=== PATIENT | male | born 1950 | race Caucasian/White ===

== ENCOUNTER 2019-09-01 00:53 | Day surgery (SDC) | payer MEDICARE, SELFPAY ==
[2019-08-27 15:20] VITALS: BMI 40.9
[2019-09-01 07:00] VITALS: BP 140/85; PULSE 96; RESP 16; TEMP 36.4; O2SAT 97
--- NOTE | 2019-09-01 07:01 | P.HP_ITS ---
History of Present Illness History of Present Illness Consent: Risks, benefits, and alternatives have been discussed and questions answered. Patient agrees to proceed with procedure. Chief complaint: Pers hx colon polyps Narrative: Mitul Smith is a 69 year old male with history of colon polyps here for screening [facility] Family History Family History Father Family history of throat cancer Mother Family history of heart disease in male family member before age 55 Other Family history of malignant neoplasm Social History Social History Smoking status: Smoker, status unknown Alcohol intake: current Meds Home Medications and Allergies Home Medications Medication Instructions Recorded Confirmed Type losartan 100 mg tablet 100 mg PO DAILY #90 tablet 07/09/19 08/27/19 Rx atorvastatin 20 mg tablet 20 mg PO DAILY #90 tablet 07/20/19 08/27/19 Rx ibuprofen 800 mg PO TID PRN 08/27/19 08/27/19 History Allergies Allergy/AdvReac Type Severity Reaction Status Date / Time No Known Allergies Allergy Verified 09/01/19 06:58 Exam Resp: Auscultation: clear to auscultation bilaterally Cardio: Rate: regular rate Rhythm: regular rhythm GI: GI Palp: Yes Soft to palpation and No Tenderness to palpation present (GI) Assessment and Plan Assessment and plan (1) Personal history of colonic polyps: Code(s): Z86.010 - Personal history of colonic polyps Status: Acute Assessment and Plan: Colonoscopy with possible biopsy or polypectomy or cautery or injection of substances.
[2019-09-01] MEDS: LACTATED RINGERS 1,000 ML 150 ML IV CONT (07:12)
--- NOTE | 2019-09-01 07:22 | WPDANESEPPF ---
Anes - Initial Pre Proc Eval Procedure: Operation Date: 09/01/19 08:00 Proposed Procedures p Screening Colonoscopy - Chandana Brown MD Date/Time: 09/01/19 07:22 Surgeon: Chandana Brown MD Pre Op Diagnosis: Pers hx colon polyps Patient Data Age: 69 Gender: M Height: 5 ft 6 in Weight: 113.8 kg Last Vital Signs Temp 97.5 F L 09/01/19 07:00 Pulse 96 09/01/19 07:00 Resp 16 09/01/19 07:00 BP 140/85 09/01/19 07:00 Pulse Ox 97 09/01/19 07:00 Allergies Allergy/AdvReac Type Severity Reaction Status Date / Time No Known Allergies Allergy Verified 09/01/19 06:58 Home Medications Medication Instructions Recorded Confirmed Type losartan 100 mg tablet 100 mg PO DAILY #90 tablet 07/09/19 08/27/19 Rx atorvastatin 20 mg tablet 20 mg PO DAILY #90 tablet 07/20/19 08/27/19 Rx ibuprofen 800 mg PO TID PRN 08/27/19 08/27/19 History Patient hx anesthesia problems: none Family hx anesthesia problems: none [facility] Past Medical History Medical History (Updated 09/01/19 @ 07:17 by Biju Hernandez MD) Hyperlipidemia Morbid obesity Family History Family History Father Family history of throat cancer Mother Family history of heart disease in male family member before age 55 Other Family history of malignant neoplasm Social History Social History Smoking status: Smoker, status unknown Alcohol intake: current Anes - Eval Final PreProcedure Day of Procedure 09/01/19 07:22 Patient weight: morbidly obese Heart: regular rate and rhythm Lungs: clear to auscultation Airway: Mallampati scale class II Neurological: alert and oriented Last oral intake: >/= 8 hours ASA classification: III Emergent: no Anesthetic plan: proceed Anesthesia type and monitoring: general GIVS and standard monitoring Informed Consent: The patient's anesthetic plan and its attendant risks and benefits were discussed with the patient/family/POA. Questions were solicited and answers provided to the satisfaction of the patient/family/POA.
[2019-09-01] MEDS: SIMETHICONE ORAL SUSPENSION 20 MG/0.3 ML 30 ML BOTTLE 0.6 ML IRRIGATION (07:59)
[2019-09-01 08:08] VITALS: BP 105/67; PULSE 89; RESP 20; O2SAT 95
[2019-09-01 08:18] VITALS: BP 117/68; PULSE 92; RESP 21; O2SAT 94
[2019-09-01 08:28] VITALS: BP 125/78; PULSE 88; RESP 19; O2SAT 97
[2019-09-01 08:38] VITALS: BP 126/74; PULSE 86; RESP 20; O2SAT 96
== END 2019-09-01 08:42 | disposition home or self-care (01) ==
PROVIDERS: PCP Internal Medicine; Visit Provider Internal Medicine Gastroenterology
PROC: 0DJD8ZZ Inspection of Lower Intestinal Tract, Via Natural or Artificial Opening Endoscopic (ICD-10-PCS; CPT 45378; principal; 2019-09-01 08:00)
DX: Z12.11 Encounter for screening for malignant neoplasm of colon (principal); D12.4 Benign neoplasm of descending colon; K62.1 Rectal polyp; K62.4 Stenosis of anus and rectum; E78.5 Hyperlipidemia, unspecified; E66.01 Morbid (severe) obesity due to excess calories; Z68.41 Body mass index [BMI] 40.0-44.9, adult
CPT/HCPCS: 45385; 45380; 88305; J2704; J7120

== ENCOUNTER 2020-05-31 06:41 | Outpatient (CLI) | payer MEDICARE, SELFPAY ==
--- NOTE | ~2020-05-31 | MR_ITS ---
EXAMINATION: MR thoracic spine wo con EXAM DATE: 05/31/2020 08:12 INDICATION: Back Pain. Lumbar Radiculopathy, thoracic Back Pain . TECHNIQUE: Multi-sequential, multiplanar MR images of the thoracic spine were obtained without contra st. Sagittal T1, T2, T2 fat saturation, axial T2 weighted images reviewed. Comparison is made to jerry or examination from 05/18/2018. FINDINGS: Several vertebral body hemangiomata unchanged. There is moderate thoracic disc disease from T6 through T10, mild to moderate at the lower lumbar levels. There is mild thoracic dextroscoliosis. The vertebral bodies are aligned in the AP dimension. Minimal loss of mid thoracic vertebral body he ights without bone marrow edema. These are unchanged. The spinal cord signal intensity and intrinsic morphology is normal. There are small thoracic disc bulges and protrusions causing no more than mild central canal stenosis. There is moderate bilateral neural foraminal stenosis at T8-9 and moderate ri ght neural foraminal stenosis at T10-11. Less stenosis at the other thoracic levels. There is mild u pper thoracic facet arthropathy, mild to moderate mid and lower thoracic facet arthropathy. There are small to moderate-sized mid and lower thoracic endplate osteophytes. Paraspinal soft tissue is unrem arkable. There is no significant interval change. IMPRESSION: Up to moderate thoracic spondylosis. Reviewed, dictated and finalized at location A. VE TURNER
--- NOTE | ~2020-05-31 | MR_ITS ---
EXAMINATION: MR lumbar spine wo con EXAM DATE: 05/31/2020 08:12 INDICATION: Low back pain. Bilateral leg and hip pain. TECHNIQUE: Multi-sequential, multiplanar MR images of the lumbar spine were obtained without contrast . Sagittal T1, T2, T2 fat saturation images. Axial T2 weighted images. Correlation is made to [facility] MR same date, lumbar x-ray 10/29/2017. FINDINGS: There is a transitional thoracolumbar vertebral body with rudimentary ribs which will be de signated L1 (this means only 11 fully formed rib-bearing thoracic vertebral bodies). Hemangiomas in L 2 and L4. There is 2 mm anterolisthesis L4 on L5. The vertebral bodies are otherwise aligned. Mild to moderate lumbar disc disease. The conus medullaris terminates at the L1 level and has normal signal intensity and morphology. Paraspinal soft tissue is unremarkable. Level by level evaluation: T11-L1: There is a mild diffuse disc bulge. Facet arthropathy: Mild bilateral. Neural foraminal stenosis: Mild left. Central canal stenosis: No stenosis. L1-L2: There is a mild diffuse disc bulge. Facet arthropathy: Mild. Neural foraminal stenosis: No stenosis. Central canal stenosis: No stenosis. L2-L3: There is a mild to moderate diffuse disc bulge. Facet arthropathy: Mild to moderate. Neural foraminal stenosis: Mild bilateral. Central canal stenosis: Mild. L3-L4: There is a mild diffuse disc bulge. Facet arthropathy: Moderate. Neural foraminal stenosis: Mild bilateral. Central canal stenosis: Mild to moderate. L4-L5: There is a mild to moderate diffuse disc bulge. Facet arthropathy: Severe . Ligamentum flavum enlargement. Neural foraminal stenosis: Moderate bilateral. Central canal stenosis: Moderate, nerve root crowding. L5-S1: There is a mild diffuse disc bulge. Facet arthropathy: Moderate. Neural foraminal stenosis: Moderate left, mild to moderate right. Central canal stenosis: Mild. IMPRESSION: 1. Transitional thoracolumbar, transition designated T11-L1. 2. L4-5 severe facet arthropathy, moderate stenosis. Reviewed, dictated and finalized at location A. MBLY LINE MACHINE OPERATOR
== END 2020-05-31 06:42 | disposition home or self-care (01) ==
PROVIDERS: PCP Internal Medicine; Visit Provider Nurse Practitioner Adult Health
DX: D18.09 Hemangioma of other sites (principal); M47.25 Other spondylosis with radiculopathy, thoracolumbar region; M48.05 Spinal stenosis, thoracolumbar region; M47.27 Other spondylosis with radiculopathy, lumbosacral region; M48.07 Spinal stenosis, lumbosacral region
CPT/HCPCS: 72146; 72148

== ENCOUNTER → 2020-09-06 08:27 | Outpatient (CLI) | payer MEDICARE, SELFPAY ==
--- NOTE | ~2020-09-06 | XR_ITS ---
EXAMINATION: XR hip LT min 2V DATE: 09/06/2020 08:40 INDICATION: Left hip pain TECHNIQUE: Anteroposterior and frog-leg lateral views of the left hip were obtained. COMPARISON: None. FINDINGS: Alignment is normal. No fracture or suspected avascular necrosis. Mild nonuniform joint space narrowi ng at the left hip consistent with very mild osteoarthritis. Small bone island at the left femoral he ad. Phlebolith in the right hemipelvis. IMPRESSION: 1. Very mild left hip osteoarthritis. No acute osseous abnormality. Reviewed, dictated and finalized at location A. DINATE MEASURING MACHINE OPERATOR
== END ==
PROVIDERS: PCP Internal Medicine; Visit Provider Nurse Practitioner Adult Health
DX: M16.12 Unilateral primary osteoarthritis, left hip (principal)
CPT/HCPCS: 73502

== ENCOUNTER 2021-01-02 10:31 | Outpatient (CLI) | payer MEDICARE, SELFPAY ==
--- NOTE | 2021-01-02 | ECG_ITS ---
Measurements Intervals [place] Rate: 74 P: 38 DE: 161 QRS: -8 QRSD: 88 T: -5 QT: 381 QTc: 424 Interpretive Statements SINUS RHYTHM INCOMPLETE RIGHT BUNDLE BRANCH BLOCK INFERIOR INFARCT, AGE INDETERMINATE BASELINE ARTIFACT- V3 ABNORMAL ECG Electronically Signed On 01-02-2021 11:22:31 CDT by Robin Purvis D.O.
== END 2021-01-02 10:32 | disposition home or self-care (01) ==
LOC: ANHLAB 10:35
PROVIDERS: PCP Internal Medicine; Visit Provider Neurological Surgery
DX: M43.16 Spondylolisthesis, lumbar region (principal); I45.10 Unspecified right bundle-branch block
CPT/HCPCS: 93005

== ENCOUNTER 2021-01-10 09:00 | Outpatient (CLI) | payer MEDICARE, SELFPAY ==
--- NOTE | 2021-01-10 | EST_ITS ---
Patient Info Name: Mitul Smith Age: 70 years : 1950 Gender: Male Ht: 64 in Wt: 230 lbs BSA: 2.22 m2 HR: 77 bpm BP: 117 / 79 mmHg Exam Date: 01/10/2021 10:15 AM Exam Location: [facility] Stress Patient Status: Outpatient Admit Date: 01/10/2021 Staff Ordering Physician: Kelechi Diaz MD Attending Provider: Kelechi Diaz MD Exercise Technologist: Edyta Flores, CT Exam Type: CA stress kaitlynn w NM Study Info A regadenoson stress test was performed. Summary 1. 1. Negative lexiscan stress test for ischemic ST changes by ECG criteria. 2. 2. Stable hemodynamics throughout the test. 3. 3. Nuclear scan to follow and will be reported separately. Please correlate with it. 4. 4. Patient informed of the above results. Protocol: Lexiscan Stress ECG Details Stage: REST Duration (min): 1 min : 4 sec HR (bpm): 80 SBP (mmHg): 117 DBP (mmHg): 79 Stage: REST Duration (min): 17 min : 5 sec HR (bpm): 78 SBP (mmHg): 117 DBP (mmHg): 79 Stage: STAGE 1 Duration (min): 1 min : 0 sec HR (bpm): 96 SBP (mmHg): 123 DBP (mmHg): 82 Stage: RECOVERY Duration (min): 1 min : 0 sec HR (bpm): 100 SBP (mmHg): 123 DBP (mmHg): 82 Stage: RECOVERY Duration (min): 2 min : 0 sec HR (bpm): 96 SBP (mmHg): 123 DBP (mmHg): 82 Stage: RECOVERY Duration (min): 2 min : 43 sec HR (bpm): 91 SBP (mmHg): 139 DBP (mmHg): 74 Rest HR: 78 bpm Peak HR: 102 bpm Rest Sys BP: 117 mmHg Peak Sys BP: 139 mmHg Max Pred HR: 150 bpm % Max Pred HR: 68 % Target HR: 128 bpm Max RPP: 14,178 bpm*mmHg Termination Reason: Completed protocol Cardiac Symptoms: Shortness of breath Total Time: 1 min : 0 sec Rest Summers BP: 79 mmHg Peak Summers BP: 74 mmHg Total Dose: 0.4 mg Resting ECG Sinus rhythm, IRBBB. Stress ECG No ST changes. Arrhythmias None. Report Signatures
--- NOTE | ~2021-01-10 | NM_ITS ---
EXAMINATION: NM kaitlynn stress w perfusion DATE: 01/10/2021 12:15 INDICATION: Abnormal electrocardiogram. TECHNIQUE: Rest images were obtained following intravenous administration of 10 mCi Tc99m tetrofosmin (Myoview). The patient was infused intravenously with Lexiscan (regadenoson). Then, 30.3 mCi Tc99m t etrofosmin (Myoview) was administered intravenously, and supine and prone stress images were obtained . Data was reconstructed into short axis and horizontal and vertical long axis SPECT images. Gated SP ECT images were also obtained. COMPARISON: None. FINDINGS: There is no definite reversible or fixed perfusion abnormality to suggest ischemia or infar ction. There is no segmental wall motion abnormality. Left ventricular ejection fraction measures > 70%. IMPRESSION: 1. No definite ischemia or infarct. 2. Normal left ventricular ejection fraction measuring >70%. Reviewed, dictated and finalized at location A.
== END 2021-01-10 09:01 | disposition home or self-care (01) ==
PROVIDERS: PCP Internal Medicine; Visit Provider Internal Medicine
DX: R94.31 Abnormal electrocardiogram [ECG] [EKG] (principal)
CPT/HCPCS: 78452; 93017; A9502; J2785

== ENCOUNTER 2021-11-28 14:19 | Outpatient (CLI) | payer MEDICARE, SELFPAY ==
--- NOTE | 2021-11-28 14:35 | ECG_ITS ---
Measurements Intervals [place] Rate: 84 P: 56 IA: 190 QRS: -15 QRSD: 81 T: -2 QT: 363 QTc: 430 Interpretive Statements SINUS RHYTHM EARLY PRECORDIAL R/S TRANSITION INFERIOR INFARCT, AGE INDETERMINATE BASELINE WANDER- I, II, AVR, AVF ABNORMAL ECG Electronically Signed On 11-28-2021 15:16:40 CDT by Robin Purvis D.O.
== END 2021-11-28 14:20 | disposition home or self-care (01) ==
LOC: ANHCARD 14:21
PROVIDERS: PCP Internal Medicine; Visit Provider Internal Medicine
DX: R00.1 Bradycardia, unspecified (principal); R94.31 Abnormal electrocardiogram [ECG] [EKG]
CPT/HCPCS: 93005

== ENCOUNTER 2024-01-02 10:11 | Outpatient (CLI) | payer MEDICARE, SELFPAY ==
--- NOTE | ~2024-01-02 | XR_ITS ---
3 VIEWS LUMBAR SPINE Ordering provider: Wanda June APRN History: . No recent injury, LBP with right hip pain . Comparison: October 29, 2012 FINDINGS: VERTEBRAL BODIES:Minimal anterolisthesis at the level of L5-S1. Minimal anterior loss of volume of T1 2 unchanged from previous examination. Degenerative changes of the spine. Otherwise, No visible frac ture or subluxation. DISK SPACES: Narrowing of the disc L1-L2, L2-L3, L3-L4 and L4-L5. Facet joint disease in the lower martin mbar area. SOFT TISSUES: Normal. IMPRESSION: No acute osseous abnormality lumbar spine. Reviewed, dictated and finalized at location A.
== END 2024-01-02 10:12 ==
LOC: GOSHIMG 10:11
PROVIDERS: PCP Nurse Practitioner Family; Visit Provider Nurse Practitioner Family
DX: M54.50 Low back pain, unspecified (principal); M25.551 Pain in right hip
CPT/HCPCS: 72100

== ENCOUNTER 2024-02-20 08:50 | Outpatient (CLI) | payer MEDICARE, SELFPAY ==
--- NOTE | ~2024-02-20 | MR_ITS ---
MRI of the lumbar spine Clinical History: Spinal stenosis Technique: Axial T2-weighted images, and sagittal T1-weighted, T2-weighted, and T2 fat-sat images wer e acquired. Findings: There is no fracture or subluxation of the lumbar spine. Vertebral bodies maintain normal h eight and alignment. No suspicious bone marrow signal abnormality seen. At L1-L2, there is no disc bulge or herniation. There is moderate to advanced facet arthropathy. Ther e is minimal central canal stenosis. Neural foramina are preserved. At L2-L3, there is mild disc bulge, protrusion at the left paracentral region. There is severe facet arthropathy. There is moderate to advanced spinal canal stenosis/thecal sac compression. There is mil d bilateral neural foraminal narrowing. At L3-L4, there is diffuse disc bulge with severe facet arthropathy. There is minimal central canal s tenosis. There is mild to moderate bilateral neural foraminal narrowing. At L4-L5, there is mild disc bulge with severe facet arthropathy. No central canal stenosis. There is moderate to advanced left neural foraminal narrowing, and moderate right neural foraminal narrowing. At L5-S1, there is no disc bulge or herniation. There is severe facet arthropathy. No central canal s tenosis or neural foraminal narrowing. Paravertebral soft tissues are unremarkable. Impression: Moderate to advanced degenerative spondylosis, as above. Reviewed, dictated and finalized at [facility]. Impression: Moderate to advanced degenerative spondylosis, as above.
== END 2024-02-20 08:51 ==
LOC: GOSHIMG 08:51
PROVIDERS: PCP Nurse Practitioner Family; Visit Provider Nurse Practitioner Family
DX: M47.26 Other spondylosis with radiculopathy, lumbar region (principal)
CPT/HCPCS: 72148

== ENCOUNTER 2025-02-16 13:47 | Outpatient (CLI) | payer MEDICARE, SELFPAY ==
--- OUTSIDE RECORDS SUMMARY | 2025-02-16 13:56 | XMS_ITS | Encounter Summary ---
Author Organization [facility] Address [address] [place] [address] Care Team Providers Care Thermal Molder Name Role Phone Dank Wise MD Unavailable Encounter Details Date Type Department Care Team (Late st Contact Info) Description 06/26/2023 Lab Requisition [facility] - DermPath Lab [address] [place] [id number] Jamin James MD [facility] DERMATOLOGY [address] [place] [phone] Dermatitis, unspecified Social History Tobacco Use Types Packs/Day Years Used Date Smoking Tobacco: Former Cigarettes Q uit: 07/14/1977 Smokeless Tobacco: Never Comments:on and off Alcohol Use Standard Drinks/Week Comments Yes 0 (1 standard drink = 0.6 oz pur e alcohol) socially Sex and Gender Information Value Date Recorded Sex Assigned at Not on file Legal Sex Male 11:50 AM ASSISTANT TECHNICIAN Gender Identity Not on file Sexual Orientation Not on file documented as of this encounter Plan of Treatment Not on file documented as of this encounter Procedures Procedure Name Priority Date/Time Associated Diagnosis Comments DERMATOPATHOLOGY Routine 06/26/2023 3:33 AM ASSISTANT TECHNICIAN Dermatitis, unspecified documented in this encounter Results * DERMATOPATHOLOGY (06/26/2023 3:33 AM ASSISTANT TECHNICIAN) Case Report Dermatopathology Report Case: [id number] Authorizing Provider: Jamin James MD Collected: 06/26/2023 03:33 AM Ordering Location: [facility] DermPath Lab Received: 06/27/2023 03:32 PM Pathologist: Erin Gonzales MD Specimen: Skin, left crown 11:31 AM [facility] DERMATOPATHOLOGY LABORATORY Final Diagnosis Specimen A. SKIN, left crown: NON-INFLAMMATORY, NON-SCARRING ALOPECIA (L64.9) (see microscopic description and comment) 11:31 AM [facility] DERMATOPATHOLOGY LABORATORY at [address] [facility] Clinical History [place] pilars vs male patterned baldness 11:31 AM [facility] DERMATOPATHOLOGY LABORATORY Gross Description Specimen A: Received is one formalin filled container labeled with the patient's name and designated left crown. The specimen consists of a punch biopsy measuring 4x4x4 mm. Jar 0. 11:31 AM [facility] DERMATOPATHOLOGY LABORATORY Microscopic Description Specimen A. SKIN, left crown: The specimen is submitted per alopecia protocol. Sections show a non-scarring alopecia. There is a shift from anagen to non-anagen hairs. There is an overall decrease in follicular size as well as an increased number of vellus hairs. There is relative hypertrophy of sebaceous glands. A mild perifollicular lymphocytic inflammatory infiltrate is present in the superficial dermis. Original and deeper sections were reviewed. 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 Features of a scarring alopecia are not observed. 11:31 AM [facility] DERMATOPATHOLOGY LABORATORY Disclaimer An external and internal positive and negative controls are appropriate for the histochemical, immunohistochemical and immunofluorescence stain(s) in this case (if any), except where stated explicitly. The performance characteristics of the stain(s) cited in this report were developed and its performance characteristic determined by the Dermatopathology Laboratory at [facility], directed by Dr. Myrna Arellano. These tests need not be, and therefore are not, approved by the [place] Food and Drug Administration. The tests are used for clinical purposes. Billing Codes Specimen Charges Stain Charges 78785 1 11:31 AM [facility] DERMATOPATHOLOGY LABORATORY Embedded Images 11:31 AM [facility] DERMATOPATHOLOGY LABORATORY Pathology/Cytolo gy TISSUE SPECIMEN FROM SKIN / Unknown 06/26/2023 3:33 AM ASSISTANT TECHNICIAN 06/27/2023 3:32 PM ASSISTANT TECHNICIAN us Jamin James MD LAB - PATHOLOGY/CYTOLOGY DIONTE KERN Final Result DERMATOPATHOLOGY LABORATORY [facility] - Department of Dermatology [facility] Medicine [address] [place] [address], [address] [phone] documented in this encounter Visit Diagnoses Diagnosis Dermatitis, unspecified documented in this encounter Care Teams Thermal Molder Relationship Specialty Start Date End Date Dank Wise MD Orthopedic Surgery 05/24/11 documented as of this encounter
--- OUTSIDE RECORDS SUMMARY | 2025-02-16 13:56 | XMS_ITS | Clinical Summary ---
Author Organization [facility] Address [facility] [place] [address] Care Team Providers Care Ultrasound Manager Name Role Phone Unavailable Primary Care Provider Unavailabl e Social History Tobacco Use Types Packs/Day Years Used Date Smoking Tobacco: Never Assessed Sex and Gender Information Value Date Recorded Sex Assigned at Not on file Legal Sex Male 8:26 PM CDT Gender Identity Not on file Sexual Orientation Not on file Plan of Treatment Health Maintenance Due Date Last Done Comments Colorectal Cancer Screening Colonoscopy (10 Years) 1950 Hepatitis C 01/22/1968 DTaP, Tdap and Td Vaccines ( 1 - Tdap) 1969 Pneumococcal Vaccine: 50+ Ye ars (1 of 1 - PCV) 01/22/2000 Zoster Vaccines (1 of 2) 01/22/2000 COVID-19 Vaccine ( - 2023-2 5 season) 2024 RSV Immunization or 60+ Years (1 - 1-dose 75+ series) 2025 Meningococcal B Vaccine Aged Out No l onger eligible based on patient's age to complete this topic Meningococcal Vaccine Aged Out No mesha luis antonio eligible based on patient's age to complete this topic RSV Immunizations Under 20 Months Aged Out No longer eligible based on patient's age to complete this topic
--- OUTSIDE RECORDS SUMMARY | 2025-02-16 13:56 | XMS_ITS | Clinical Summary ---
Author Organization [facility] [employer] Address [address] [facility] [place] [address] Care Team Providers Care Mixing Place Supervisor Name Role Phone Dank Wise MD Unavailable Source Comments [facility],non-owned Affiliates and Associated Physician Practices is amultiple site organization consisting of ambulatory clinics and hospital sitesin [place], [place], [place] and [place]. This disclosure is being madepursuant to the Care Everywhere program and may not contain all information available regarding this patient. Last updated 18.[facility] [employer] Allergies No known active allergies Medications * Be aware that medications may not be up to date on this document. Alwaysverify current medications with the patient. rosuvastatin (CRESTOR) 10 MG tablet Take 10 mg by mouth at bedtime. Active aspirin 81 MG tablet Take 81 mg by mouth once daily. Active Fish Oil OIL Use. Active celecoxib (CELEBREX) 200 MG capsule Take 200 mg by mouth once daily. Active methylPREDNISolo ne acetate (DEPO-MEDROL) 40 MG/ML injectionIndicat ions:Osteoarthro sis, unspecified whether generalized or localized, lower leg Administer on office 2 mL 0 2 Active Active Problems Problem Noted Date Diagnosed Date DJD (degenerative joint disease) of knee 011 Family History Medical History Relation Name Comments Cancer Father CAD (Coronary Artery Disease) Mother Relation Name Status Comments Father Mother Social History Tobacco Use Types Packs/Day Years Used Date Smoking Tobacco: Former Cigarettes Q uit: 07/14/1977 Smokeless Tobacco: Never Comments:on and off Alcohol Use Standard Drinks/Week Comments Yes 0 (1 standard drink = 0.6 oz pur e alcohol) socially Sex and Gender Information Value Date Recorded Sex Assigned at Not on file Legal Sex Male 11:50 AM 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 Gender Identity Not on file Sexual Orientation Not on file Last Filed Vital Signs Vital Sign Reading Time Taken Comments Blood Pressure 126/77 03/23/2011 5:39 AM CDT Pulse 82 03/23/2011 5:39 AM CDT Temperature 36.9 C (98.4 F) 03/23/2011 5:39 AM CDT Respiratory Rate 18 03/23/2011 5:39 AM CDT Oxygen Saturation 95% 03/23/2011 5:39 AM CDT Inhaled Oxygen Concentration - - Weight 113 kg (249 lb 1.9 oz) 03/21/2011 7:13 AM CDT Height 167.6 cm (5' 6) 03/21/2011 7:13 AM CDT Body Mass Index 40.21 03/21/2011 7:13 AM CDT Plan of Treatment Health Maintenance Due Date Last Done Comments COLOGUARD (AGES 45-75) - COL ON CA SCREENING 1950 COLON MONITORING 1950 COLONOSCOPY - COLON CA SCREENING 1950 CT COLONOGRAPHY - COLON CA SCREENING 1950 Colorectal Cancer Screening 1950 FIT - COLON CA SCREENING 1950 FLEX SIG - COLON CA SCREENING 1950 HEPATITIS C SCREENING 01/17/1968 DTAP/TDAP/TD VACCINES (1 - Tdap) 1969 PNEUMOCOCCAL VACCINE 50+ (1 of 1 - PCV) 01/22/2000 ZOSTER VACCINE (1 of 2) 01/22/2000 COVID-19 VACCINE ( - 2023-2 5 season) 2024 DEPRESSION SCREENING 07/14/2024 MEDICARE AWV CALENDAR YEAR 2024 Respiratory Syncytial Virus (RSV) Vaccine Pt: or over 60 yrs (1 - 1-dose 75+ series) 2025 INFLUENZA VACCINE (#1) 2025 HEPATITIS B VACCINE Aged Out No longe r eligible based on patient's age to complete this topic HIB VACCINE Aged Out No longer eligi ble based on patient's age to complete this topic HPV VACCINE Aged Out No longer eligi ble based on patient's age to complete this topic MENINGOCOCCAL (Group B) VACC INE SHARED DECISION-MAKING Aged Out No longer eligibl e based on patient's age to complete this topic MENINGOCOCCAL GROUPS A/C/Y/W VACCINE Aged Out No longer eligible b ased on patient's age to complete this topic Insurance AETNA [facility] Care Address: [facility] [id number] [place] [address] [facility] AETNA MEDICARE ADV Advance Directives Documents on File Type Date Recorded Patient Craps Manager Expl anation Adv Directive/Living Will/POA 03/24/2011 2:21 PM * FULL RESUSCITATION (Latest Code Status on File) Date Activated Date Inactivated Comments 03/21/2011 12:36 PM 03/23/2011 11:[address] Supervisor Relationship Specialty Start Date End Date Dank Wise MD Orthopedic Surgery 05/24/11
== END 2025-02-16 13:48 | disposition home or self-care (01) ==
LOC: ANHAUDIO 13:47
PROVIDERS: PCP Nurse Practitioner Family; Visit Provider Nurse Practitioner Family
DX: H93.13 Tinnitus, bilateral (principal); H90.3 Sensorineural hearing loss, bilateral
CPT/HCPCS: 92557; 92567

== ENCOUNTER 2025-06-15 01:20 | Day surgery (SDC) | payer MEDICARE, SELFPAY ==
[2025-05-26 13:57] VITALS: BMI 35.5
[2025-06-15 07:50] VITALS: BP 139/73; PULSE 96; RESP 18; TEMP 36.2; O2SAT 97
[2025-06-15] MEDS: LACTATED RINGERS 1,000 ML 150 ML IV CONT (08:00)
--- NOTE | 2025-06-15 08:35 | PM.IMHP2 ---
H&P: HPI History of Present Illness Date/Time: 06/15/25 08:35 Chief Complaint: History of colon polyps Narrative: The patient has a history of colonic polyps, the last colonoscopy was 5 years ago. Review of Systems Review of Systems: All systems reviewed & are unremarkable except as noted in HPI and below PMFSH Past Medical History Medical History (Updated 06/14/25 @ 14:17 by John La, DO) Benign essential hypertension Family history of pancreatic cancer Ankle pain Morbid obesity Hyperlipidemia Family History Family History (Updated 02/01/25 @ 07:57 by Wanda June, [employer]) Father Family history of throat cancer Mother Family history of heart disease in male family member before age 55 Sibling Pancreatic cancer Other Family history of malignant neoplasm Social History Social History Smoking packs per day: 1 Smoking cigarettes per day: 20.0 Years smoked: 3 Smoking pack-years: 3.00 Smoking status: Former smoker Tobacco type: cigarettes Second hand tobacco smoke exposure: No Alcohol intake: current Substance use: never Substance use type: does not use Lack of Transportation: No Lack of Food: Never True Current Housing: I Have Housing Concerned About Future Housing: No Difficulty Paying Gas/Electric Bills: No Difficulty Paying for Meds: No Currently Unemployed: No Education: Grade School Difficulty w/ Childcare or Family Care: No Living arrangements: with family Occupation/Education: retired Gender identity (if verbalized by the patient): Male Sexual Orientation (if Verbalized by the Patient): Straight or Heterosexual Spiritual care concerns: No Agree to blood products: Yes Meds Home Medications and Allergies Home Medications ?Medication ?Instructions ?Recorded ?Confirmed ?Type fluticasone propionate 50 1 spray intranasal BID #9.9 mL 10/25/19 05/26/25 Rx mcg/actuation nasal spray,suspension cholecalciferol (vitamin D3) 125 125 mcg PO DAILY 05/09/21 05/26/25 History mcg (5,000 unit) capsule tadalafil 5 mg tablet (Cialis) 5 mg PO DAILY 11/11/23 05/26/25 History inhalational spacing device #10 ea 08/26/24 11/23/24 Rx (Aerochamber MV spacer) albuterol sulfate 90 mcg/actuation 2 inh inhalation Q4H PRN shortness 09/22/24 05/26/25 Rx aerosol inhaler of breath or wheezing #8.5 grams amlodipine 5 mg tablet See Rx Instructions .Route 11/23/24 05/26/25 Rx .COMPLEX #90 tabs atorvastatin 20 mg tablet 20 mg PO DAILY #90 tabs 11/23/24 05/26/25 Rx meloxicam 7.5 mg tablet 7.5 mg PO DAILY PRN pain 11/23/24 05/26/25 History cyclobenzaprine 10 mg tablet See Rx Instructions .Route 05/11/25 05/26/25 Rx .COMPLEX #30 tabs losartan 100 mg tablet See Rx Instructions .Route 05/11/25 05/26/25 Rx .COMPLEX #90 tabs acetaminophen 325 mg tablet 325 mg PO ONCE PRN fever or pain 05/26/25 05/26/25 History (Aminofen) Allergies Allergy/AdvReac Type Severity Reaction Status Date / Time No Known Allergies Allergy Verified 06/15/25 07:49 Vital Signs Vital Signs - 24 hr 06/15/25 07:50 Temperature 97.2 F L Pulse Rate 96 Respiratory Rate 18 Blood Pressure 139/73 Pulse Oximetry 97 Oxygen Delivery Room Air Exam Const: General: cooperative and healthy appearing Resp: Effort & Inspection: normal respiratory effort and able to speak in complete sentences Auscultation: clear to auscultation bilaterally Cardio: Rate: regular rate Rhythm: regular rhythm GI: Inspection: normal to inspection GI Palp: No No hepatosplenomegaly present Auscultation: normal bowel sounds Rectal Exam: deferred Skin: General skin exam: normal color Psych: Appearance: grossly normal Mental Status: mental status grossly normal Assessment and Plan Assessment and plan (1) Personal history of colonic polyps: Code(s): Z86.010 - Personal history of colon polyps Status: Acute Assessment and Plan: The patient is deemed a good candidate for the procedure. Consent signed. Will proceed. Prior Studies I have reviewed the following patient records and this information was taken into consideration when formulating the assessment and plan.: previous labs, previous ER visits, previous hospitalizations and previous clinic visits
--- NOTE | 2025-06-15 08:46 | P.PNAN_ITS ---
Anes - Initial Pre Proc Eval Procedure: Operation Date: 06/15/25 09:00 Proposed Procedures p Screening Colonoscopy - Lennox Cruz MD Date/Time: 06/15/25 08:46 Surgeon: Lennox Cruz MD Pre Op Diagnosis: Personal history of colon polyps, unspecified Patient Data Age: 75 Gender: M Height: 1.68 m Weight: 102.6 kg Last Vital Signs Temp 36.2 C L 06/15/25 07:50 Pulse 96 06/15/25 07:50 Resp 18 06/15/25 07:50 BP 139/73 06/15/25 07:50 Pulse Ox 97 06/15/25 07:50 O2 Del Method Room Air 06/15/25 07:50 Allergies Allergy/AdvReac Type Severity Reaction Status Date / Time No Known Allergies Allergy Verified 06/15/25 07:49 Home Medications ?Medication ?Instructions ?Recorded ?Confirmed ?Type fluticasone propionate 50 1 spray intranasal BID #9.9 mL 10/25/19 05/26/25 Rx mcg/actuation nasal spray,suspension cholecalciferol (vitamin D3) 125 125 mcg PO DAILY 04/1405/26/25 History mcg (5,000 unit) capsule tadalafil 5 mg tablet (Cialis) 5 mg PO DAILY 11/11/23 05/26/25 History inhalational spacing device #10 ea 08/26/24 11/23/24 R x (Aerochamber MV spacer) albuterol sulfate 90 mcg/actuation 2 inh inhalation Q4 H PRN shortness 09/22/24 05/26/25 Rx aerosol inhaler of breath or wheezing #8.5 g rehan amlodipine 5 mg tablet See Rx Instructions .Route 0 11/23/24 05/26/25 Rx .COMPLEX #90 tabs atorvastatin 20 mg tablet 20 mg PO DAILY #90 tabs 11/1105/26/25 Rx meloxicam 7.5 mg tablet 7.5 mg PO DAILY PRN pain 05/26/25 History cyclobenzaprine 10 mg tablet See Rx Instructions .Rout e 05/11/25 05/26/25 Rx .COMPLEX #30 tabs losartan 100 mg tablet See Rx Instructions .Route 1 05/26/25 Rx .COMPLEX #90 tabs acetaminophen 325 mg tablet 325 mg PO ONCE PRN fever o r pain 05/26/25 05/26/25 History (Aminofen) Patient hx anesthesia problems: none Family hx anesthesia problems: none Results Review: All pre-operative results and documents have been reviewed as part of the pre- operative evaluation. [facility] Past Medical History Medical History (Updated 06/14/25 @ 14:17 by John La DO) Benign essential hypertension Family history of pancreatic cancer Ankle pain Morbid obesity Hyperlipidemia Family History Family History (Updated 02/01/25 @ 07:57 by Wanda June, [employer]) Father Family history of throat cancer Mother Family history of heart disease in male family member before age 55 Sibling Pancreatic cancer Other Family history of malignant neoplasm Social History Social History Smoking packs per day: 1 Smoking cigarettes per day: 20.0 Years smoked: 3 Smoking pack-years: 3.00 Smoking status: Former smoker Tobacco type: cigarettes Second hand tobacco smoke exposure: No Alcohol intake: current Substance use: never Substance use type: does not use Lack of Transportation: No Lack of Food: Never True Current Housing: I Have Housing Concerned About Future Housing: No Difficulty Paying Gas/Electric Bills: No Difficulty Paying for Meds: No Currently Unemployed: No Education: Grade School Difficulty w/ Childcare or Family Care: No Living arrangements: with family Occupation/Education: retired Gender identity (if verbalized by the patient): Male Sexual Orientation (if Verbalized by the Patient): Straight or Heterosexual Spiritual care concerns: No Agree to blood products: Yes Anes - Eval Final PreProcedure Day of Procedure 06/15/25 08:46 Patient weight: obese Heart: regular rate and rhythm Lungs: clear to auscultation Airway: Mallampati scale class II Neurological: alert and oriented Last oral intake: >/= 8 hours ASA classification: III Emergent: no Anesthetic plan: proceed Anesthesia type and monitoring: general GIVS and standard monitoring Results Review: All pre-operative results and documents have been reviewed as part of the pre- operative evaluation. Informed Consent: The patient's anesthetic plan and its attendant risks and benefits were discussed with the patient/family/POA. Questions were solicited and answers provided to the satisfaction of the patient/family/POA.
--- NOTE | 2025-06-15 09:01 | S_PTH ---
PATIENT: Mitul Smith LOC: [facility] U#:[id number] AGE/SX: 75/M ROOM: RE06/15/[address]: Lennox Cruz MD : 1950 BED: DIS: 06/15/2025 SPEC #: [id number] RECD: 06/15/25 10:43 STATUS: JULIA REYo #: [id number] MAURICE: 06/15/25 09:[address]: Lennox Cruz DEPT: [facility] Surgical RECD BY: Marjorie Pa ENTERED: 06/15/25 10:44 SP TYPE: Surgical OTHR DR: Wanda June, JOB Tissues: A - Colon Polypectomy B - Colon Polypectomy C - Colon Polypectomy Procedures: Hematoxylin and Eosin Stain Gross and Microscopic Level 4
--- NOTE | 2025-06-15 09:02 | SUR.OPER ---
TWO SIGMOID COLON POLYPS COLD SNARED, ONLY ONE RETRIEVED AND ONE NOT RETRIEVED, DR OATES AWARE AND NO NEW ORDERS.
[2025-06-15 09:03] VITALS: BP 129/56; PULSE 96; RESP 20; O2SAT 96
[2025-06-15 09:13] VITALS: BP 121/75; PULSE 86; RESP 21; O2SAT 100
[2025-06-15 09:23] VITALS: BP 134/71; PULSE 82; RESP 16; O2SAT 99
== END 2025-06-15 09:34 | disposition home or self-care (01) ==
PROVIDERS: PCP Nurse Practitioner Family; Referring Provider Nurse Practitioner Family; Visit Provider Internal Medicine Gastroenterology
PROC: 0DJD8ZZ Inspection of Lower Intestinal Tract, Via Natural or Artificial Opening Endoscopic (ICD-10-PCS; CPT 45378; principal; 2025-06-15 09:00)
DX: Z12.11 Encounter for screening for malignant neoplasm of colon (principal); D12.2 Benign neoplasm of ascending colon; D12.5 Benign neoplasm of sigmoid colon; K63.5 Polyp of colon; I10 Essential (primary) hypertension; E78.5 Hyperlipidemia, unspecified; E66.9 Obesity, unspecified; Z68.36 Body mass index [BMI] 36.0-36.9, adult; Z79.51 Long term (current) use of inhaled steroids; Z87.891 Personal history of nicotine dependence; Z80.0 Family history of malignant neoplasm of digestive organs; Z80.1 Family history of malignant neoplasm of trachea, bronchus and lung; Z82.49 Family history of ischemic heart disease and other diseases of the circulatory system
CPT/HCPCS: 45385; 88305; J2704; J7120